=== PATIENT | male | born 1955 | race Caucasian/White ===

== ENCOUNTER 2020-10-06 06:50 | Day surgery (SDC) | payer MEDICARE, BC ==
[~2020-10-06 06:50] MED LIST: Lactated Ringers 1,000 ML IV SCH; Propofol 200 MG/20 ML SDV ONE; fentaNYL 100 MCG/2 ML SDV ONE
--- NOTE | 2020-10-06 07:20 | PCM.PREANE ---
Preanesthetic Assessment - Anesthesia/Transfusion/Family Hx Anesthesia History: Prior Anesthesia Without Reaction Family History of Anesthesia Reaction: No Transfusion History: No Prior Transfusion(s) - Physical Assessment NPO Status Date: 10/06/20 NPO Status Time: 00:01 Vital Signs: Last Vital Signs Temp 97.2 F 10/06/20 06:55 Pulse 84 10/06/20 06:55 Resp 15 10/06/20 06:55 BP 146/85 H 10/06/20 06:55 Pulse Ox 98 10/06/20 06:55 Height: 6 ft 1 in Weight: 250 lb ASA Class: 2 Mental Status: Alert & Oriented x3 Airway Class: Mallampati = 2 Dentition: Reports: Broken Tooth/Teeth, Missing Tooth/Teeth ROM/Head Extension: Limited/Partial Lungs: Normal Respiratory Effort Cardiovascular: Regular Rhythm - Allergies Allergies/Adverse Reactions: Allergies Allergy/AdvReac Type Severity Reaction Status Date / Time No Known Allergies Allergy Verified 10/02/20 10:44 - Anesthesia Plan Pre-Op Medication Ordered: None - Acknowledgements Anesthesia Type Planned: General Anesthesia Pt an Appropriate Candidate for the Planned Anesthesia: Yes Alternatives and Risks of Anesthesia Discussed w Pt/Guardian: Yes Pt/Guardian Understands and Agrees with Anesthesia Plan: Yes Additional Comments: npo anxiety depression silke tob quit 2010 no cv problems par no questions PreAnesthesia Questionnaire HEENT History: Reports: Hard of Hearing, Other (See Below) Other HEENT History: wears glasses, has bilateral hearing aides Cardiovascular History: Reports: High Cholesterol, Other (See Below) Other Cardiovascular History: hx of rheumatic fever Respiratory History: Reports: None Gastrointestinal History: Reports: Colon Polyp, Diverticulosis, GERD, Hiatal Hernia Genitourinary History: Reports: None Musculoskeletal History: Reports: Other (See Below) Other Musculoskeletal History: hx of chronic leg pain Neurological History: Reports: None Psychiatric History: Reports: Anxiety Endocrine/Metabolic History: Reports: Obesity/BMI 30+ Other Endocrine/Metabolic History: states has elevated liver enzymes Hematologic History: Reports: None Immunologic History: Reports: None Oncologic (Cancer) History: Reports: None Dermatologic History: Reports: None - Past Surgical History Head Surgeries/Procedures: Reports: None HEENT Surgical History: Reports: None Cardiovascular Surgical History: Reports: None Respiratory Surgical History: Reports: None GI Surgical History: Reports: Colonoscopy, EGD Male Surgical History: Reports: Vasectomy Endocrine Surgical History: Reports: None Neurological Surgical History: Reports: None Musculoskeletal Surgical History: Reports: None Oncologic Surgical History: Reports: None Dermatological Surgical History: Reports: None - SUBSTANCE USE Tobacco Use Status *Q: Former Tobacco User Tobacco Use Within Last Twelve Months: No Recreational Drug Use History: Yes Recreational Drug Type: Reports: Marijuana/Hashish - HOME MEDS Home Medications: Home Meds Multivit-Min/FA/Lycopen/Lutein [Centrum Silver Ultra Men's] 1 tab PO DAILY 09/28/15 [History] Simvastatin [Zocor] 10 mg PO DAILY 09/28/15 [History] Doxylamine Succinate [Unisom Sleep Aid] 25 mg PO BEDTIME PRN 10/02/20 [History] LORazepam [Ativan] 0.5 - 1 mg PO Q8H PRN 10/02/20 [History] - CURRENT (IN HOUSE) MEDS Current Meds: Current Medications Lactated Ringer's (Ringers, Lactated) 1,000 mls @ 125 mls/hr IV ASDIRECTED JS Discontinued Medications Fentanyl (Fentanyl 100 Mcg/2 Ml Sdv) Confirm Administered Dose 100 mcg .ROUTE .STK-MED ONE Stop: 10/06/20 06:48 Propofol (Propofol 200 Mg/20 Ml Sdv) Confirm Administered Dose 400 mg .ROUTE .STK-MED ONE Stop: 10/06/20 06:48
--- NOTE | 2020-10-06 08:26 | PCM.OPNOTE ---
- General Post-Op/Procedure Note Date of Surgery/Procedure: 10/06/20 Operative Procedure(s): Colonoscopy Pre Op Diagnosis: Personal history of colon polyps Post-Op Diagnosis: Sigmoid diverticulosis Anesthesia Technique: MAC (ASA II) Primary Surgeon: Benjy Montana Condition: Good Free Text/Narrative:: DICTATION [id number] CPT CODE [id number]
[2020-10-06] MEDS ORDERED: Lactated Ringers 1,000 ML IV SCH (08:30)
[2020-10-06 08:43] VITALS: PULSE 64
--- NOTE | 2020-10-06 08:47 | PCM.POSTAN ---
POST ANESTHESIA ASSESSMENT - MENTAL STATUS Mental Status: Alert (no anesthetic problems), Oriented - VITAL SIGNS Vital Signs: Last Vital Signs Temp 98.4 F 10/06/20 08:21 Pulse 64 10/06/20 08:42 Resp 15 10/06/20 08:42 BP 108/73 10/06/20 08:42 Pulse Ox 94 L 10/06/20 08:42 - RESPIRATORY Respiratory Status: Respiratory Rate WNL, Airway Patent, O2 Saturation Stable - CARDIOVASCULAR CV Status: Pulse Rate WNL, Blood Pressure Stable - GASTROINTESTINAL GI Status: No Symptoms - POST OP HYDRATION Hydration Status: Adequate & Stable
[2020-10-06 08:52] VITALS: BP 117/67
--- NOTE | 2020-10-06 09:35 | PCM48HPAN ---
Post Anesthesia Note - EVALUATION WITHIN 48HRS OF ANESTHETIC Vital Signs in Normal Range: Yes Patient Participated in Evaluation: Yes Respiratory Function Stable: Yes Airway Patent: Yes Cardiovascular Function Stable: Yes Hydration Status Stable: Yes Pain Control Satisfactory: Yes Nausea and Vomiting Control Satisfactory: Yes Mental Status Recovered: Yes Vital Signs: Last Vital Signs Temp 97.7 F 10/06/20 08:45 Pulse 64 10/06/20 08:45 Resp 14 10/06/20 08:45 BP 117/67 10/06/20 08:45 Pulse Ox 97 10/06/20 08:45
--- NOTE | 2020-10-06 14:39 | OR ---
SURGEON: Benjy Montana M.D. DATE OF PROCEDURE: 10/06/2020 OPERATION PERFORMED: Colonoscopy. PRIMARY SURGEON: Benjy Montana M.D. ANESTHESIA: MAC. ASA CLASSIFICATION: II. PREOPERATIVE DIAGNOSIS: Personal history of colon polyps. POSTOPERATIVE DIAGNOSIS: Sigmoid diverticulosis. DESCRIPTION OF PROCEDURE: The patient was taken to the endoscopy room and positioned on the endoscopy table in the left lateral decubitus position. Time-out was called for appropriate identification of patient and procedure. Monitored anesthesia care was provided. The colonoscope was inserted into the rectum and advanced with moderate difficulty to the cecum. The cecum was identified by internal landmarks and external pressure. The colonoscope was retroflexed to visualize the ascending colon from below and then straightened and slowly withdrawn. The cecum, ascending colon, hepatic flexure, transverse colon, splenic flexure, and descending colon showed no tumors, polyps, diverticula, or angiodysplastic changes. A few scattered diverticula were noted in the sigmoid colon. No stricture, spasm, or bleeding was noted, and no polyps were encountered. The colonoscope was withdrawn to the rectum and retroflexed to visualize the anal orifice from above. No acute hemorrhoidal changes were noted. The colonoscope was then straightened, the rectum aspirated, and the colonoscope removed. The patient tolerated the procedure well and was taken to recovery room in stable condition. ZABRINA / JUVE /[id number]
== END 2020-10-06 09:10 | disposition home or self-care (01) ==
LOC: MW.SDS 06:50
PROVIDERS: ATTEND Surgery
DX: Z12.11 Encounter for screening for malignant neoplasm of colon (principal); K57.30 Diverticulosis of large intestine without perforation or abscess without bleeding; E78.00 Pure hypercholesterolemia, unspecified; E66.9 Obesity, unspecified; Z86.010 Personal history of colon polyps; Z79.899 Other long term (current) drug therapy; Z98.890 Other specified postprocedural states; Z87.891 Personal history of nicotine dependence
CPT/HCPCS: G0105; J2704; J3010; J7120; 00812